=== PATIENT | female | born 1965 | race Caucasian/White ===

== ENCOUNTER 2018-05-18 11:15 | Day surgery (SDC) | payer MEDICARE ==
[~2018-05-18] VITALS: Ht 170.2 cm; Wt 89.8 kg
[~2018-05-18 11:15] MED LIST: AMLO5TAB7 PO; ASPI-630 PO; DOCU-109 PO; DOXA2TAB2 PO; ERGO500027 PO; FLUT9.9S NS; FURO80TA3 PO; GENT30CR TP; LOSA100T7 PO; MYCELEX PO; MYCO360T PO; POLY17PO29 PO; PROTONIX PO; SEVE2.4P PO; SODI650T PO; SULF1TAB23 PO; TACR1CAP4 PO; VALG450T PO; VIT1TABL71 PO
[2018-05-18] MEDS ORDERED: IV RINGERS,LACTATED 1000ML 1,000 ML IV SCH (12:15)
[2018-05-18] MEDS ORDERED: PROPOFOL 20 ML IV ONE (12:18)
[2018-05-18] MEDS ORDERED: ROCURONIUM 50 MG/5 ML VIAL. ONE (12:18)
[2018-05-18] MEDS ORDERED: DEXAMETHASONE SOD PHOS 20 MG/5 ML VIAL. ONE (12:18)
[2018-05-18] MEDS ORDERED: ONDANSETRON PF 4 MG/2 ML VIAL. ONE (12:18)
[2018-05-18] MEDS ORDERED: fentaNYL PF VIAL 100 MCG/2 ML VIAL ONE (12:19)
[2018-05-18 12:29] LABS: CALCIUM 9.7 mg/dL (8.5-10.1); CREATININE 1.9 mg/dL (0.6-1.0); GFR 27.4; POTASSIUM 4.6 mmol/L (3.5-5.1)
[2018-05-18] MEDS ORDERED: BUPIVAC MPF-EPI 0.5%-1:200000 30 ML VIAL. ONE (13:04)
[2018-05-18] MEDS ORDERED: SEVOFLURANE 31 TO 60 MINUTES. IH ONE (13:35)
[2018-05-18] MEDS ORDERED: GLYCOPYRROLATE 1 MG/5 ML VIAL. ONE (13:36)
[2018-05-18] MEDS ORDERED: NEOSTIGMINE METHYLSULFATE 5 MG/5 ML SYRINGE. ONE (13:36)
[2018-05-18] MEDS ORDERED: PHENYLEPHRINE in 0.9% NACL PF 1 MG/10 ML SYRINGE. IV ONE (13:49)
--- NOTE | 2018-05-18 14:04 | PDOC4 ---
Operative Note Operative Note Operative Note: Preoperative Diagnosis: Renal failure, status post kidney transplant Postoperative Diagnosis: Same Procedure: Removal of peritoneal dialysis catheter Surgeon: Regino Anesthesia: Gen. EBL: 10 mL Specimen: None Drains: None Complications: None Indication: The patient is a 53-year-old female who previously been on peritoneal dialysis. She received a kidney transplant which has gone well with good function. She was referred for removal of the peritoneal dialysis catheter. I discussed the procedure with the patient including the risks. The risks include bleeding, infection, pain, anesthetic risk, potential need for additional surgery or procedure. She understands and like to proceed. Description: The patient was taken to the operating room and placed supine on the operating table. Gen. anesthesia was performed. The abdomen was prepped with ChloraPrep and draped in a standard surgical manner. A small incision was made overlying the deep cuff in the infraumbilical region at the site of her prior scar. Cautery dissection was carried down into the subcutaneous tissue. The deep cuff was then identified and dissected free from the abdominal fascia. The small fascial defect was closed with 0 Vicryl in a [id number] manner. The proximal cuff was then identified and mobilized in the subcutaneous tissues. The catheter was then fully freed up and cut allowing it to be completely withdrawn and discarded in two pieces. Hemostasis was readily achieved with cautery. No other abnormalities were noted. The skin was approximated with 4-0 Monocryl and Steri-Strips and dressings were applied. The patient tolerated the procedure well and was sent to the recovery room in stable condition. At the end of the case all counts were correct. ANNE MENCHACA MD May 18, 2018 14:04
--- NOTE | 2018-05-18 14:05 | DISCH ---
DISCHARGE INSTRUCTIONS Condition on Discharge Condition on Discharge: Stable Activity After Discharge Activity Instructions for Disc: Resume previous activity Diet after Discharge Diet after Discharge: Regular Wound Incision Care Wound/Incision Care: Other, see below (keep dressing clean and dry X 72 hours, may then remove and shower) Follow-Up Follow up with: Dr Menhcaca in 2 weeks in the office, call for appt [phone] ANNE MENCHACA MD May 18, 2018 14:05
[2018-05-18 14:45] VITALS: BP 126/73
== END 2018-05-18 15:00 | disposition home or self-care (01) ==
LOC: SURG 11:15
PROVIDERS: ATTEND Surgery
DX: N18.5 Chronic kidney disease, stage 5 (principal); D64.9 Anemia, unspecified; I12.0 Hypertensive chronic kidney disease with stage 5 chronic kidney disease or end stage renal disease; E03.9 Hypothyroidism, unspecified; F41.9 Anxiety disorder, unspecified; F17.210 Nicotine dependence, cigarettes, uncomplicated; Z94.0 Kidney transplant status; Z79.82 Long term (current) use of aspirin; Z79.899 Other long term (current) drug therapy; Z90.49 Acquired absence of other specified parts of digestive tract; K21.9 Gastro-esophageal reflux disease without esophagitis; Z90.721 Acquired absence of ovaries, unilateral; Z90.710 Acquired absence of both cervix and uterus; Z99.2 Dependence on renal dialysis; Z98.890 Other specified postprocedural states
CPT/HCPCS: 36415; 49422; 80048; A7015; J0690; J1100; J2370; J2405; J2704; J2710; J3010; J3490